=== PATIENT | male | born 1945 | race Caucasian/White ===

== ENCOUNTER 2018-10-29 04:09 | Inpatient (IN) ==
--- NOTE | 2018-10-22 08:49 | EKG Report ---
Test Performed on : 10/22/2018 08:17:35 AM Test Reason : EKG Blood Pressure : / mmHG Vent. Rate : 074 BPM Atrial Rate : 074 BPM P-R Int : 132 ms QRS Dur : 078 ms QT Int : 386 ms P-R-T Axes : 011 -41 -01 degrees QTc Int : 428 ms Normal sinus rhythm. Possible Left atrial enlargement Left axis deviation Left ventricular hypertrophy Nonspecific ST abnormality Abnormal ECG When compared with ECG of 20-APR-2009 01:29, No significant change was found Confirmed by Angela DAVIES, Dario Mccallum ([id number]) on 10/22/2018 5:32:51 PM
[2018-10-22 09:22] LABS: BASO# 0.03 X1000 (0.0-0.2); BASO% 0.4 % (0.0-0.8); EOS# 0.08 X1000 (0.0-0.7); EOS% 1.2 % (0.0-10.0); HEMATOCRIT 47.3 % (42.0-52.0); IMM GRAN# 0.03 X1000 (0.0-0.04); IMM GRAN% 0.4 % (0.0-0.5); INR 0.97; LYMPH# 1.01 X1000 (1.2-3.4); MCH 33.6 PG (27-31); MCHC 31.7 g/dL (33-37); MCV 105.8 FL (81-99); MONO# 0.75 X1000 (0.11-0.59); MONO% 11.2 % (1.7-9.3); MPV 10.8 FL (7.4-10.4); NEUT# 4.82 X1000 (1.4-6.5); NEUT% 71.8 % (42.2-75.2); PLT 242 X1000 (130-400); PROTIME 13.7 Seconds (11.0-16.0); RBC 4.47 XMIL (4.7-6.1); RDW 14.9 % (11.5-14.5); WBC 6.72 X1000 (4.8-10.8)
[2018-10-22 09:23] LABS: PTT 28.4 Seconds (22.3-41.8)
[2018-10-22 09:30] LABS: AGAP 12; BUN 15 mg/dL (8-22); CALCIUM 8.5 mg/dL (8.8-10.2); CHLORIDE 106 mmol/L (98-107); COSMO 282; CREATININE 0.8 mg/dL (0.7-1.2); ESTIMATED GFR > 60; GLUCOSE 104 mg/dL (70-104); SODIUM 141 mmol/L (136-145); TCO2 23 mmol/L (25-35)
[2018-10-22 09:47] LABS: LYMPHS 24 % (21-51); MONO 10 % (1-9); SEGS 66 % (42-75)
[2018-10-22 09:48] LABS: STOMATOCYTES 1+
[2018-10-29] MEDS ORDERED: COLACE ONE (05:38)
[2018-10-29] MEDS ORDERED: PEPCID ONE (05:38)
[2018-10-29] MEDS ORDERED: CELEBREX ONE (05:38)
[2018-10-29] MEDS ORDERED: REGLAN ONE (05:38)
[2018-10-29] MEDS ORDERED: KEFZOL 2 GM/D5W 2 GM/50 ML IVPB ONE (05:39)
[2018-10-29] MEDS ORDERED: LYRICA ONE (05:39)
[2018-10-29] MEDS ORDERED: LR 1,000 ML ONE (05:39)
[2018-10-29] MEDS ORDERED: CYKLOKAPRON 1,000 MG/NS 1,000 MG/100 ML IVPB ONE (06:45)
[2018-10-29] MEDS ORDERED: DURAMORPH ONE (06:45)
[2018-10-29] MEDS ORDERED: SENSORCAINE-MPF 0.5%/EPI 1:200,000 ONE (06:45)
[2018-10-29] MEDS ORDERED: TORADOL ONE (06:45)
[2018-10-29] MEDS ORDERED: SODIUM CHLORIDE 0.9% ONE (06:45)
[2018-10-29] MEDS ORDERED: NEOSPORIN G.U. IRRIGANT ONE ×2 (06:46→08:13)
[2018-10-29] MEDS ORDERED: EXPAREL 1.3% ONE (06:46)
[2018-10-29] MEDS ORDERED: DIPRIVAN 1% ONE (06:48)
[2018-10-29] MEDS ORDERED: QUELICIN (DOSE) ONE (06:48)
[2018-10-29] MEDS ORDERED: XYLOCAINE-MPF 2% ONE (06:48)
[2018-10-29] MEDS ORDERED: ROBINUL ONE (07:19)
[2018-10-29] MEDS ORDERED: DECADRON ONE (07:20)
[2018-10-29] MEDS ORDERED: OFIRMEV 1000 MG/ISOTONIC SOLN 1,000 MG/100 ML BOTTLE ONE (07:20)
[2018-10-29] MEDS ORDERED: EPHEDRINE ONE (07:48)
[2018-10-29] MEDS ORDERED: DILAUDID ONE (07:59)
--- NOTE | 2018-10-29 08:57 | OPERATIVE NOTE ---
PROCEDURE DATE: 10/29/2018 PREOPERATIVE DIAGNOSIS: Left glenohumeral arthritis with chronic rotator cuff tear. POSTOPERATIVE DIAGNOSIS: Left glenohumeral arthritis with chronic rotator cuff tear. PROCEDURE: Left reverse shoulder arthroplasty with DePuy Delta Xtend size 14 press-fit stem, a 42 + 6 humeral cup, a 42 eccentric Glenosphere, and a standard metaglene. SURGEON: Garcia Bowman MD CHICKEN HATCHERY HELPER: ZEB Lund SECOND INDUSTRIAL HYGIENE ENGINEER: Flaco Moulton RN ANESTHESIA: General. IV FLUIDS: 700 mL lactated Ringer's. ESTIMATED BLOOD LOSS: 250 mL. COMPLICATIONS: None. INDICATIONS: The patient is a 73-year-old male with a chronic history of pain and discomfort of the left shoulder. He has undergone previous surgery for a torn rotator cuff back in the 80s. X- rays revealed evidence of glenohumeral arthritis with some superior migration consistent with a chronic rotator cuff tear and recommendation to proceed with left reverse shoulder arthroplasty was offered. Risks and benefits of surgery were explained, including the risks of anesthesia, , bleeding, infection, failure to relieve pain, postoperative stiffness, nerve injury, blood clots, and other imponderables. All questions were answered and the patient and family wished to proceed with surgery. DETAILS OF OPERATION: The patient was taken to the operating room and placed supine on the operating table. Once adequate anesthesia was obtained, the patient was placed in the semi-Pineda beach-chair position. The left shoulder was subsequently prepped and draped in the usual sterile fashion. A standard deltopectoral incision was made with a skin knife. Hemostasis was obtained using electrocautery. The clavipectoral tissue was developed and the retractor was placed deep to the conjoint tendon and deltoid. Approximately 1 cm medial to the subscapularis tendon insertion, the tendon was released. The patient was noted to have the chronic tear superiorly and significant arthritis. A starting reamer was passed with sequential reaming up to size 14. The intramedullary guide for the proximal humeral head cutting block was pinned into position with approximately 15 degrees of retroversion. The humeral head was resected. The inferior osteophyte was removed with a rongeur. A protective disk was then placed. Attention was then turned to the glenoid where circumferential dissection was performed with a deep knife. A guide was then placed in position to localize the guide pin. The guide pin was then placed. There appeared to be good positioning. Reaming was then conducted. The central hole was then dilated and the guide pin was then removed. The wound was copiously with antibiotic pulsatile lavage. A standard metaglene was then impacted into position and had good fit. Two locking screws and 2 nonlocking screws were placed, and had good purchase. The wound was copiously irrigated once again. A 42 eccentric Glenosphere was then placed with the eccentricity placed inferiorly. After this had been performed, attention was then turned to the proximal humerus where an intramedullary guide was placed in position and the proximal humerus was reamed. The wound was copiously irrigated with antibiotic pulsatile lavage. A size 14 press-fit stem was then impacted into 15 degrees of retroversion. Good fit was obtained. A trial cup size was then placed and a 42 +6 appeared to be the correct size. The trial cup was removed. The wound was copiously with antibiotic pulsatile lavage. A 42 +6 humeral cup was then impacted on the stem. The shoulder was reduced and carried through range of motion, and had good range of motion and good stability. Exparel was placed in the deep soft tissue. The wound was copiously irrigated with antibiotic pulsatile lavage. FiberWire #2 was used to repair the subscapularis tendon. The remaining portion of the Exparel was placed in the deep soft tissue as well as the subcutaneous tissue. Final irrigation was then performed. A 2-0 Vicryl was then used to repair the subcutaneous tissue, followed by a running 2- 0 Prolene. Benzoin and Steri-Strips were applied. Adaptic, sterile 4 x 4, ABD pad, and tape were applied to the left shoulder followed by a shoulder immobilizer. All counts were correct. The patient tolerated the procedure well and was transferred to the recovery room in stable condition. cc: Garcia Bowman MD
[2018-10-29] MEDS ORDERED: NS 1,000 ML ONE (09:23)
--- NOTE | 2018-10-29 10:46 | Diag Imaging Result Doc PS360 ---
EXAM: SHOULDER-LEFT 10/29/2018 HISTORY: post op TECHNIQUE: Left shoulder one view COMMENT: There is a total shoulder prosthesis. There is no evidence of acute fracture. There is severe acromioclavicular arthropathy. IMPRESSION: Postsurgical changes and degenerative arthritis. Electronically signed by Rene Beach 10/29/2018 10:43 AM
[2018-10-29] MEDS ORDERED: OXY IR PO PRN (11:30)
[2018-10-29] MEDS ORDERED: ZOFRAN PO PRN (11:30)
[2018-10-29] MEDS: NS 1,000 ML IV SCH ×2 (11:30→22:49)
[2018-10-29] MEDS ORDERED: CYKLOKAPRON 1,000 MG in NS 100 ML IV ONE (13:10)
[2018-10-29] MEDS ORDERED: PRILOSEC PO ONE (14:47)
[2018-10-29] MEDS: TYLENOL PO SCH ×2 (14:57→20:20)
[2018-10-29] MEDS: KEFZOL 2 GM/D5W 2 GM/50 ML IVPB IV SCH ×2 (15:49→22:48)
[2018-10-29] MEDS: HYDREA PO SCH (20:20)
[2018-10-29] MEDS ORDERED: PERIDEX MT SCH (21:00)
[2018-10-30] MEDS: OXY IR PO PRN ×2 (00:21→08:13)
[2018-10-30] MEDS: TYLENOL PO SCH ×2 (01:07→08:10)
[2018-10-30] MEDS: SYNTHROID PO SCH ×2 (05:44→06:59)
[2018-10-30 05:56] LABS: HEMATOCRIT 38.7 % (42.0-52.0); HEMOGLOBIN 12.3 g/dL (14.0-18.0)
[2018-10-30 06:27] LABS: AGAP 11; BUN 14 mg/dL (8-22); CALCIUM 8.8 mg/dL (8.8-10.2); CHLORIDE 109 mmol/L (98-107); COSMO 284; CREATININE 0.7 mg/dL (0.7-1.2); ESTIMATED GFR > 60; GLUCOSE 100 mg/dL (70-104); SODIUM 142 mmol/L (136-145); TCO2 22 mmol/L (25-35)
[2018-10-30 07:45] VITALS: BP 138/69
[2018-10-30] MEDS: HYDREA PO SCH (08:12)
[2018-10-30] MEDS ORDERED: PRILOSEC PO SCH (09:00)
[2018-10-30] MEDS ORDERED: ASPIRIN PO SCH (09:00)
[2018-10-30] MEDS ORDERED: METAMUCIL PO SCH (09:00)
[2018-10-30] MEDS ORDERED: COUMADIN PO SCH (21:00)
== END 2018-10-30 10:56 | disposition home health service (06) | DRG 483 ==
LOC: SURHOLD 04:09 → 4N 07:40
PROVIDERS: ADMIT Orthopaedic Surgery Adult Reconstructive Orthopaedic Surgery; ATTEND Orthopaedic Surgery Adult Reconstructive Orthopaedic Surgery
CPT/HCPCS: 73030; 80048; 85014; 85018; 85025; 85610; 85730; 86850; 86900; 86901; 88305; 88311; 93005; 93010; 94761; 94799; A9270; C9290; J0131; J0330; J0690; J1100; J1170; J1885; J2274; J2275; J7030; J7120; Q9974; S0176

== ENCOUNTER 2019-11-04 05:05 | Day surgery (SDC) ==
[2019-10-28 08:52] LABS: URINE SOURCE CLEAN CATCH
--- NOTE | 2019-10-28 09:02 | EKG Report ---
Test Performed on : 10/28/2019 08:39:49 AM Test Reason : PAT Blood Pressure : / mmHG Vent. Rate : 071 BPM Atrial Rate : 071 BPM P-R Int : 156 ms QRS Dur : 086 ms QT Int : 370 ms P-R-T Axes : 025 -40 005 degrees QTc Int : 402 ms Normal sinus rhythm. Left axis deviation Minimal voltage criteria for LVH, may be normal variant Abnormal ECG When compared with ECG of 22-OCT-2018 08:17, No significant change was found Confirmed by Octaviano DAVIES, Zhao Bolivar ([id number]) on 10/30/2019 7:00:35 PM
[2019-10-28 09:03] LABS: BASO# 0.05 X1000 (0.0-0.2); BASO% 0.5 % (0.0-0.8); EOS# 0.14 X1000 (0.0-0.7); EOS% 1.5 % (0.0-10.0); HEMATOCRIT 51.7 % (42.0-52.0); HEMOGLOBIN 16.1 g/dL (14.0-18.0); IMM GRAN# 0.02 X1000 (0.0-0.04); IMM GRAN% 0.2 % (0.0-0.5); LYMPH# 1.08 X1000 (1.2-3.4); LYMPH% 11.8 % (20.5-51.1); MCH 30.6 PG (27-31); MCHC 31.1 g/dL (33-37); MCV 98.3 FL (81-99); MONO# 0.66 X1000 (0.11-0.59); MONO% 7.2 % (1.7-9.3); MPV 11.2 FL (7.4-10.4); NEUT# 7.22 X1000 (1.4-6.5); NEUT% 78.8 % (42.2-75.2); PLT 357 X1000 (130-400); RBC 5.26 XMIL (4.7-6.1); RDW 17.3 % (11.5-14.5); WBC 9.17 X1000 (4.8-10.8)
[2019-10-28 09:04] LABS: BILIRUBIN URINE NEGATIVE (NEGATIVE); BLOOD URINE NEGATIVE (NEGATIVE); COLOR YELLOW; GLUCOSE URINE NEGATIVE (NEGATIVE); KETONE URINE NEGATIVE (NEGATIVE); LEUKOCYTES URINE NEGATIVE (NEGATIVE); NITRITE URINE NEGATIVE (NEGATIVE); PH URINE 5.5; PROTEIN URINE NEGATIVE (NEGATIVE); TURBIDITY URINE CLEAR (CLEAR); UR EPITHELIAL CELLS <10 /HPF (<10); URINE BACTERIA NEGATIVE /HPF; URINE RBC <10 /HPF (<10); URINE WBC <10 /HPF (<10); UROBILINOGEN URINE NORMAL (NORMAL)
[2019-10-28 09:10] LABS: INR 1.02; PROTIME 13.5 Seconds (11.0-16.0)
[2019-10-28 09:11] LABS: PTT 28.7 Seconds (22.3-41.8)
[2019-10-28 09:21] LABS: HEMOGLOBIN A1C 5.2 % (4.8-6.0)
[2019-10-28 09:46] LABS: AGAP 12; BUN 18 mg/dL (8-22); CALCIUM 9.8 mg/dL (8.8-10.2); CHLORIDE 99 mmol/L (98-107); COSMO 274; CREATININE 0.9 mg/dL (0.7-1.2); ESTIMATED GFR > 60; GLUCOSE 97 mg/dL (70-104); POTASSIUM 3.9 mmol/L (3.5-5.1); SODIUM 136 mmol/L (136-145); TCO2 25 mmol/L (25-35)
[2019-11-04] MEDS ORDERED: REGLAN ONE (05:34)
[2019-11-04] MEDS ORDERED: COLACE ONE (05:34)
[2019-11-04] MEDS ORDERED: PEPCID ONE (05:34)
[2019-11-04] MEDS ORDERED: CELEBREX ONE (05:35)
[2019-11-04] MEDS ORDERED: LYRICA ONE (05:35)
[2019-11-04] MEDS ORDERED: LR 1,000 ML ONE (05:35)
[2019-11-04] MEDS ORDERED: KEFZOL 1 GM/D5W 2 GM/100 ML IVPB ONE (05:35)
[2019-11-04] MEDS ORDERED: VERSED ONE (06:19)
[2019-11-04] MEDS ORDERED: FENTANYL ONE (06:20)
[2019-11-04] MEDS ORDERED: DIPRIVAN 1% ONE ×2 (06:20→07:27)
[2019-11-04] MEDS ORDERED: XYLOCAINE-MPF 2% ONE ×2 (06:20→07:28)
[2019-11-04] MEDS ORDERED: ROBINUL ONE (06:20)
[2019-11-04] MEDS ORDERED: DURAMORPH ONE (06:32)
[2019-11-04] MEDS ORDERED: MARCAINE 0.25% PF ONE (06:32)
[2019-11-04] MEDS ORDERED: TORADOL ONE ×2 (06:32→07:26)
[2019-11-04] MEDS ORDERED: VANCOMYCIN ONE (06:32)
[2019-11-04] MEDS ORDERED: CYKLOKAPRON 1,000 MG/NS 1,000 MG/100 ML IVPB ONE ×2 (06:32→06:38)
[2019-11-04] MEDS ORDERED: SODIUM CHLORIDE 0.9% ONE (06:33)
[2019-11-04] MEDS ORDERED: NEOSPORIN G.U. IRRIGANT ONE (06:35)
[2019-11-04] MEDS ORDERED: EXPAREL 1.3% ONE (06:35)
[2019-11-04] MEDS ORDERED: OFIRMEV 1000 MG/ISOTONIC SOLN 1,000 MG/100 ML BOTTLE ONE (07:26)
[2019-11-04] MEDS ORDERED: DECADRON ONE (07:26)
[2019-11-04 07:39] LABS: URINE SOURCE CATH
[2019-11-04 07:48] LABS: BILIRUBIN URINE NEGATIVE (NEGATIVE); BLOOD URINE NEGATIVE (NEGATIVE); COLOR YELLOW; GLUCOSE URINE NEGATIVE (NEGATIVE); KETONE URINE NEGATIVE (NEGATIVE); LEUKOCYTES URINE NEGATIVE (NEGATIVE); NITRITE URINE NEGATIVE (NEGATIVE); PROTEIN URINE NEGATIVE (NEGATIVE); SP GRAVITY URINE 1.014; TURBIDITY URINE CLEAR (CLEAR); UROBILINOGEN URINE NORMAL (NORMAL)
[2019-11-04 07:49] LABS: UR EPITHELIAL CELLS <10 /HPF (<10); URINE BACTERIA NEGATIVE /HPF; URINE RBC <10 /HPF (<10); URINE WBC <10 /HPF (<10)
[2019-11-04] MEDS ORDERED: ZOFRAN ONE (08:40)
[2019-11-04] MEDS ORDERED: NS 1,000 ML ONE (09:17)
--- NOTE | 2019-11-04 09:45 | Diag Imaging Result Doc PS360 ---
EXAM: KNEE 1-2 VIEWS-RIGHT INDICATION: rt tka TECHNIQUE: 2 views COMPARISON: None. FINDINGS: There has been a recent right knee arthroplasty. Arthroplasty hardware is in the expected position. There is no evidence of periprosthetic fracture. Anterior skin frances and a drainage catheter are in place. IMPRESSION: Satisfactory postoperative knee. Electronically signed by Ochoa Smith 11/04/2019 9:45 AM
[2019-11-04] MEDS ORDERED: OXY IR PO PRN (10:15)
[2019-11-04] MEDS ORDERED: ZOFRAN PO PRN (10:15)
[2019-11-04] MEDS ORDERED: MILK OF MAGNESIA PO PRN (10:15)
[2019-11-04] MEDS ORDERED: MORPHINE IV PRN ×3 (10:15)
[2019-11-04] MEDS: NS 1,000 ML IV SCH ×2 (11:38→20:24)
[2019-11-04] MEDS: KEFZOL 2 GM/D5W 2 GM/50 ML IVPB IV SCH (17:32)
[2019-11-04 19:38] LABS: INR 1.1; PROTIME 14.3 Seconds (11.0-16.0)
[2019-11-04] MEDS: COLACE PO SCH (20:24)
[2019-11-04] MEDS: HYDREA PO SCH (20:24)
[2019-11-04] MEDS: PERIDEX MT SCH (20:24)
--- NOTE | 2019-11-04 20:48 | OPERATIVE NOTE ---
PROCEDURE DATE: 11/04/2019 PREOPERATIVE DIAGNOSIS: Degenerative arthritis of the right knee. POSTOPERATIVE DIAGNOSIS: Degenerative arthritis of the right knee. PROCEDURE: Right total knee arthroplasty with DePuy Attune size 7 posterior stabilized femur, size 7 tibial tray, a 6 mm rotating platform tibial insert, and a 38 mm medialized anatomic patella. SURGEON: Garcia Bowman MD. TOPSTITCHER ZIGZAG: Ananya Dsouza, who was necessary for proper positioning and manipulation of the extremity and retraction during the case and improved efficiency. 2ND PLASTIC PARTS FABRICATOR: ZEB Moya. ANESTHESIA: Spinal. IV FLUIDS: 1100 mL lactated Ringer's. ESTIMATED BLOOD LOSS: 50 mL. TOURNIQUET TIME: 75 minutes at 300 mmHg. COMPLICATIONS: None. INDICATION: The patient is a 74-year-old male, who has longstanding history of pain and discomfort of the right knee. He has continued pain and discomfort despite appropriate nonoperative treatment. X-rays revealed significant degenerative process and recommendation to proceed with right total knee arthroplasty was offered. Risks and benefits of surgery were explained, including the risks of anesthesia, , bleeding, infection, failure to relieve pain, postoperative stiffness, nerve injury, blood clots, and other imponderables. All questions answered. The patient wished to proceed with surgery. DETAILS OF OPERATION: The patient was taken to the operating room and underwent spinal anesthesia. After adequate anesthesia was obtained, he placed supine on the operating table. Right lower extremity was subsequently prepped and draped in the usual sterile fashion. Esmarch was used to exsanguinate right lower extremity and the tourniquet was inflated to 300 mmHg. A standard anterior incision was made with a skin knife. Medial and lateral skin envelopes were developed. A standard medial parapatellar arthrotomy was then performed. Patella fat pad was excised. Retractors were then placed. Approximately 1 cm anterior to the PCL insertion, a starting reamer was passed. Intramedullary guide with a distal cutting block was pinned in position. The distal femoral cut was then performed in a standard fashion. A sizing block was placed to measure a size 7. Corresponding pins were placed. A size 7 cutting block was placed in position. Anterior, posterior, and chamfer cuts were then made. Attention was then turned to the proximal tibia. Using the extramedullary guide, the proximal tibia cutting block was pinned in position. It had good alignment confirmed with the alignment jasper. The proximal tibia was then resected. Medial and lateral menisci were excised. A curved osteotome was used to be remove the posterior osteophytes off the distal femur. A spacer block was placed and good soft tissue balance with flexion and extension. Attention turned back to the proximal tibia where a size 7 tibial tray appeared to be the correct size. This was pinned in position. This followed by central reamer and a fin punch. A box cutting guide was pinned on the distal femur. A box cut was performed. The trial femoral component was then placed and 2 lug holes were drilled. A trial tibial insert was then placed and had good soft tissue balancing. The patella was everted and resected in a standard fashion. A size 38 appeared to the correct size. Corresponding holes were drilled. The trial patella component was then placed and was reduced and carried through range of motion. It had good patellofemoral tracking. The components were then removed. Copious irrigation was then performed with antibiotic pulsatile lavage. Vancomycin was mixed with cement on the back table. Sequential cementing was then performed, first with the tibial tray and excess cement removed with a [place], followed by the femoral component. Excess cement was removed with a [place] followed by trial tibial insert and the knee was then placed in full extension and axial loading was maintained while cement cured. The patella was cemented in a standard fashion. Patella clamp was placed. While cement was curing, Exparel was placed in the deep soft tissue, as well as the subcutaneous tissue. After cement had cured, peripheral cement was removed with a small osteotome. A size 6 mm rotating platform tibial insert appeared to correct size. This trial insert was removed. Exparel was placed in the deep posterior capsule and irrigation was performed once again. A 6 mm rotating platform tibial insert was then placed and the knee was then carried through range of motion. It had good range of motion, good soft tissue balance and good patellofemoral tracking. A 1/8 Hemovac drain was placed and was not sewn in. Copious irrigation was then performed once again with antibiotic pulsatile lavage. A #1 Vicryl was used to repair the arthrotomy followed by 2-0 Vicryl to repair the subcutaneous tissue, and skin frances. Adaptic, sterile 4x4s, Webril, cryo unit, and Iban wrap was applied to the right lower extremity. The patient tolerated the procedure well with no complications. Transferred to recovery room in stable condition. cc: Garcia Bowman MD
[2019-11-04] MEDS ORDERED: COUMADIN PO SCH (21:00)
[2019-11-04] MEDS: OXY IR PO PRN (21:23)
[2019-11-05] MEDS: KEFZOL 2 GM/D5W 2 GM/50 ML IVPB IV SCH (02:00)
[2019-11-05] MEDS: OXY IR PO PRN (03:54)
[2019-11-05] MEDS: NS 1,000 ML IV SCH (04:46)
[2019-11-05] MEDS ORDERED: XARELTO PO SCH (06:00)
[2019-11-05 07:35] LABS: HEMATOCRIT 41.6 % (42.0-52.0)
[2019-11-05 07:36] VITALS: BP 126/60
[2019-11-05 07:53] LABS: AGAP 12; BUN 15 mg/dL (8-22); CALCIUM 8.7 mg/dL (8.8-10.2); CHLORIDE 103 mmol/L (98-107); COSMO 276; CREATININE 0.9 mg/dL (0.7-1.2); ESTIMATED GFR > 60; GLUCOSE 115 mg/dL (70-104); SODIUM 137 mmol/L (136-145); TCO2 22 mmol/L (25-35)
[2019-11-05] MEDS ORDERED: HYDROCHLOROTHIAZIDE PO SCH (09:00)
[2019-11-05] MEDS ORDERED: SYNTHROID PO SCH (09:00)
[2019-11-05] MEDS ORDERED: PRILOSEC PO SCH (09:00)
[2019-11-05] MEDS ORDERED: ASPIRIN PO SCH (09:00)
[2019-11-05] MEDS: PERIDEX MT SCH (09:57)
[2019-11-05] MEDS: COLACE PO SCH (09:57)
[2019-11-05] MEDS: HYDREA PO SCH (09:57)
--- NOTE | 2019-11-05 12:19 | ORTHOPAEDICS PROGRESS NOTE ---
DATE: 11/05/2019 SUBJECTIVE: Mr. Razo is postop day 1 of a right total knee arthroplasty. He denies any complaints at this time. He is currently sitting in the chair in no acute distress. OBJECTIVE: Appears very well this morning. He is sitting up and in no acute distress. His incision to his right knee appears well at this time, with no surrounding redness and no drainage on his current dressing. His drain has been removed this morning, and his dressing has been changed. He is able to dorsiflex and plantar flex his right foot without difficulty. His calf is soft. His sensation is intact distally. ASSESSMENT: Status post day 1, right total knee arthroplasty. PLAN: Mr. Razo will be getting physical therapy at home for 2 weeks. We will send him with a [place] prescription to be used as needed for pain. He is going to be taking Xarelto for the next 4 days, 10 mg daily, in addition to his usual Coumadin, as his Coumadin was held prior to surgery. He takes his Coumadin due to polycythemia vera. We will be bridging him with the Xarelto until the Coumadin has had time to stabilize his INR to a therapeutic range. Mr. Razo will follow up in office on 11/16/2019. He will need to call and make an appointment for this. Dictated by ZEB Shultz for Garcia Bowman MD cc: Garcia Bowman MD
[2019-11-05] MEDS ORDERED: COUMADIN PO SCH (21:00)
== END 2019-11-05 10:29 | disposition home or self-care (01) ==
LOC: PAT 05:05 → 4N 05:05 → OPS 05:05
PROVIDERS: ATTEND Orthopaedic Surgery Adult Reconstructive Orthopaedic Surgery